=== PATIENT | male | born 1955 | race Caucasian/White ===

== ENCOUNTER 2022-04-09 13:13 | Inpatient (IN) | payer MEDICARE ==
[2022-04-09] VITALS (10 sets, daily range): BP systolic 94–143; BP diastolic 56–76
[~2022-04-09] VITALS: Ht 172.7 cm; Wt 102.5 kg
[2022-04-09] MEDS ORDERED: HEPARIN SODIUM 25000 UNITS/D5W 250 ML IV ONE (13:40)
[2022-04-09] MEDS ORDERED: NITROGLYCERIN 50 MG/D5% WATER 0 ML ONE (13:40)
[2022-04-09] MEDS ORDERED: NITROGLYCERIN 50 MG/D5% WATER 250 ML IV PRN ×2 (13:45→17:51)
[2022-04-09 13:57] LABS: BASOPHILS % (AUTO) 0.5 % (0.0-2.0); EOSINOPHILS % (AUTO) 0.6 % (1.0-6.0); HEMATOCRIT 24.9 % (41-53); HEMOGLOBIN 8.5 g/dL (13.5-17.5); LYMPHOCYTES # (AUTO) 0.9 K/uL (1.0-4.8); LYMPHOCYTES % (AUTO) 12.3 % (22.0-44.0); MEAN CORPUSCULAR HEMOGLOBIN 30.7 pg (26.0-34.0); MEAN CORPUSCULAR HGB CONC 34.2 G/dL (31.0-37.0); MEAN CORPUSCULAR VOLUME 90 fL (80-100); MONOCYTES # (AUTO) 0.6 K/uL (0.1-1.0); MONOCYTES % (AUTO) 8.9 % (2.0-9.0); NEUTROPHILS # (AUTO) 5.5 K/uL (1.8-7.7); NEUTROPHILS % (AUTO) 77.7 % (40.0-70.0); PLATELET COUNT (AUTO) 180 K/uL (150-450); RED BLOOD CELL COUNT(AUTO) 2.77 MIL/uL (4.50-5.90)
[2022-04-09] MEDS ORDERED: HEPARIN SODIUM,PORCINE 5,000 UNITS/ML VIAL IVP PRN ×2 (14:00)
[2022-04-09] MEDS ORDERED: HEPARIN SODIUM 25000 UNITS/D5W 250 ML IV PRN (14:00)
[2022-04-09] MEDS ORDERED: FentaNYL CITRATE PF 100 MCG/2 ML VIAL ONE (14:00)
[2022-04-09] MEDS ORDERED: NITROGLYCERIN 50 MG/D5% WATER 250 ML ONE (14:01)
[2022-04-09] MEDS ORDERED: VERAPAMIL HCL 2.5 MG/ML 2 ML VIAL ONE (14:01)
[2022-04-09] MEDS ORDERED: MIDAZOLAM HCL 2 MG/2 ML VIAL ONE (14:01)
[2022-04-09] MEDS ORDERED: IOHEXOL 300 MG/ML 50 ML VIAL ONE (14:01)
[2022-04-09] MEDS ORDERED: IOHEXOL 300 MG/ML 100 ML VIAL ONE (14:02)
[2022-04-09] MEDS ORDERED: HEPARIN SODIUM,PORCINE 1,000 UNITS/ML 10 ML VIAL ONE (14:02)
[2022-04-09] MEDS ORDERED: HEPARIN SODIUM 1000 UNITS/NS 1,000 ML ONE (14:02)
[2022-04-09] MEDS ORDERED: SODIUM BICARBONATE 50 MEQ/50 ML VIAL ONE (14:02)
[2022-04-09] MEDS ORDERED: LIDOCAINE/PF 1% 30 ML VIAL ONE (14:02)
[2022-04-09] MEDS ORDERED: IOHEXOL 300 MG/ML 150 ML VIAL ONE ×2 (14:02→15:37)
[2022-04-09 14:06] LABS: CALCIUM, TOTAL 8.9 mg/dL (8.8-10.5); CREATININE 9.12 mg/dL (0.60-1.30); POTASSIUM 4.3 mmol/L (3.5-5.1)
[2022-04-09 14:12] LABS: ALBUMIN 3.6 g/dL (3.4-5.0); BILIRUBIN,TOTAL 0.6 mg/dL (0.1-1.0)
[2022-04-09 14:27] LABS: PROTHROMBIN TIME 10.3 SEC (9.4-11.6)
[2022-04-09] MEDS ORDERED: LIDOCAINE 1% 30 ML/SOD BICARB 8.4% 4 ML SQ ONE (14:30)
[2022-04-09] MEDS ORDERED: SODIUM CHLORIDE 0.9% 500 ML IV ONE (14:30)
[2022-04-09] MEDS ORDERED: IOHEXOL 300 MG/ML 150 ML VIAL ICOR ONE (14:30)
[2022-04-09] MEDS ORDERED: HEPARIN SODIUM 1000 UNITS/NS 1,000 ML IARTER ONE (14:30)
[2022-04-09] MEDS ORDERED: MIDAZOLAM HCL 2 MG/2 ML VIAL IVP ONE ×2 (14:45→16:15)
[2022-04-09] MEDS ORDERED: FentaNYL CITRATE PF 100 MCG/2 ML VIAL IVP ONE ×3 (14:45→17:00)
[2022-04-09] MEDS ORDERED: IOHEXOL 300 MG/ML 50 ML VIAL IARTER ONE (15:00)
[2022-04-09] MEDS ORDERED: HEPARIN SODIUM,PORCINE 5,000 UNITS/ML VIAL IVP ONE ×4 (15:15→16:15)
[2022-04-09] MEDS ORDERED: MAGNESIUM HYDROXIDE SUSPENSION 30 ML UDCUP PO PRN (15:30)
[2022-04-09] MEDS ORDERED: BISACODYL 10 MG RECTAL RECTAL SUPPOSITORY PR PRN (15:30)
[2022-04-09] MEDS ORDERED: HYDROCODONE/ACETAMINOPHEN 5-325 MG TABLET PO PRN (15:30)
[2022-04-09] MEDS ORDERED: ZOLPIDEM TARTRATE 5 MG TABLET PO PRN (15:30)
[2022-04-09] MEDS ORDERED: MORPHINE SULFATE 2 MG/ML SYRINGE IVP PRN (15:30)
[2022-04-09] MEDS ORDERED: ACETAMINOPHEN 325 MG TABLET PO PRN (15:30)
[2022-04-09] MEDS ORDERED: ONDANSETRON HCL 4 MG/2 ML VIAL IVP PRN (15:30)
[2022-04-09] MEDS ORDERED: HEPARIN SODIUM 1000 UNITS/NS 500 ML ONE (15:49)
[2022-04-09] MEDS ORDERED: CLOPIDOGREL BISULFATE 300 MG TABLET ONE (15:54)
[2022-04-09] MEDS ORDERED: CLOPIDOGREL BISULFATE 300 MG TABLET PO ONE (16:30)
[2022-04-09] MEDS ORDERED: IOHEXOL 300 MG/ML 100 ML VIAL IARTER ONE (16:30)
[2022-04-09 19:16] LABS: GLUCOSE,POINT OF CARE 111 MG/DL (70-110)
[2022-04-09] MEDS: CARVEDILOL 3.125 MG TABLET PO SCH (20:48)
[2022-04-09] MEDS: DOCUSATE SODIUM 100 MG CAPSULE PO SCH (20:48)
[2022-04-09] MEDS: LISINOPRIL 5 MG TABLET PO SCH (21:46)
[2022-04-10] VITALS (20 sets, daily range): BP systolic 101–157; BP diastolic 41–76
[2022-04-10 05:12] LABS: BASOPHILS % (AUTO) 0.6 % (0.0-2.0); EOSINOPHILS % (AUTO) 1.1 % (1.0-6.0); HEMATOCRIT 22.2 % (41-53); HEMOGLOBIN 7.6 g/dL (13.5-17.5); LYMPHOCYTES # (AUTO) 1.1 K/uL (1.0-4.8); LYMPHOCYTES % (AUTO) 18.5 % (22.0-44.0); MEAN CORPUSCULAR HEMOGLOBIN 30.8 pg (26.0-34.0); MEAN CORPUSCULAR HGB CONC 34.3 G/dL (31.0-37.0); MEAN CORPUSCULAR VOLUME 90 fL (80-100); MONOCYTES # (AUTO) 0.6 K/uL (0.1-1.0); MONOCYTES % (AUTO) 10.6 % (2.0-9.0); NEUTROPHILS # (AUTO) 4.1 K/uL (1.8-7.7); NEUTROPHILS % (AUTO) 69.2 % (40.0-70.0); PLATELET COUNT (AUTO) 166 K/uL (150-450); RED BLOOD CELL COUNT(AUTO) 2.48 MIL/uL (4.50-5.90); RED CELL DISTRIBUTION WIDTH 14.3 % (11.5-14.5)
[2022-04-10 05:43] LABS: BILIRUBIN,TOTAL 0.5 mg/dL (0.1-1.0); CREATININE 11.14 mg/dL (0.60-1.30); THYROID STIMULATING HORMONE 1.25 uIU/mL (0.36-3.74)
[2022-04-10 06:17] LABS: POTASSIUM 6.1 mmol/L (3.5-5.1)
[2022-04-10] MEDS: ASPIRIN 81 MG CHEWABLE TABLET PO SCH (07:34)
[2022-04-10] MEDS: ATORVASTATIN CALCIUM 40 MG TABLET PO SCH (07:34)
[2022-04-10] MEDS: CARVEDILOL 3.125 MG TABLET PO SCH (07:34)
[2022-04-10] MEDS: DOCUSATE SODIUM 100 MG CAPSULE PO SCH ×2 (07:34→20:24)
[2022-04-10] MEDS: PANTOPRAZOLE SODIUM 40 MG DR TABLET PO SCH (07:35)
[2022-04-10] MEDS: CLOPIDOGREL BISULFATE 75 MG TABLET PO SCH (07:35)
[2022-04-10] MEDS ORDERED: EPOETIN ALFA 10,000 UNITS/ML VIAL SQ SCH (09:00)
[2022-04-10] MEDS: LISINOPRIL 5 MG TABLET PO SCH ×2 (10:10→20:24)
[2022-04-10 11:31] LABS: GLUCOSE,POINT OF CARE 113 MG/DL (70-110)
[2022-04-10 18:11] LABS: GLUCOSE,POINT OF CARE 96 MG/DL (70-110)
[2022-04-10 18:26] LABS: GLUCOSE,POINT OF CARE 108 MG/DL (70-110)
[2022-04-10 18:27] LABS: GLUCOSE,POINT OF CARE 110 MG/DL (70-110)
[2022-04-10] MEDS: CARVEDILOL 6.25 MG TABLET PO SCH (20:24)
[2022-04-10 21:15] LABS: GLUCOSE,POINT OF CARE 117 MG/DL (70-110)
[2022-04-10] MEDS ORDERED: SODIUM CHLORIDE 0.9% 250 ML IV ONE (22:09)
[2022-04-11] VITALS (8 sets, daily range): BP systolic 102–141; BP diastolic 51–68
[2022-04-11 05:23] LABS: BASOPHILS % (AUTO) 0.7 % (0.0-2.0); EOSINOPHILS % (AUTO) 1.6 % (1.0-6.0); HEMATOCRIT 24.1 % (41-53); HEMOGLOBIN 8.3 g/dL (13.5-17.5); LYMPHOCYTES % (AUTO) 15.3 % (22.0-44.0); MEAN CORPUSCULAR HEMOGLOBIN 30.9 pg (26.0-34.0); MEAN CORPUSCULAR HGB CONC 34.5 G/dL (31.0-37.0); MEAN CORPUSCULAR VOLUME 90 fL (80-100); MONOCYTES # (AUTO) 0.6 K/uL (0.1-1.0); MONOCYTES % (AUTO) 8.8 % (2.0-9.0); NEUTROPHILS % (AUTO) 73.6 % (40.0-70.0); PLATELET COUNT (AUTO) 176 K/uL (150-450); RED BLOOD CELL COUNT(AUTO) 2.69 MIL/uL (4.50-5.90); RED CELL DISTRIBUTION WIDTH 14.1 % (11.5-14.5)
[2022-04-11 05:32] LABS: CALCIUM, TOTAL 8.4 mg/dL (8.8-10.5); CREATININE 7.74 mg/dL (0.60-1.30); POTASSIUM 4.7 mmol/L (3.5-5.1)
[2022-04-11 05:37] LABS: CHOL/HDL RATIO 3.3 (4.2-7.3)
[2022-04-11] MEDS: ASPIRIN 81 MG CHEWABLE TABLET PO SCH (08:00)
[2022-04-11] MEDS: DOCUSATE SODIUM 100 MG CAPSULE PO SCH (09:16)
[2022-04-11] MEDS: PANTOPRAZOLE SODIUM 40 MG DR TABLET PO SCH (09:17)
[2022-04-11] MEDS: CARVEDILOL 6.25 MG TABLET PO SCH (09:17)
[2022-04-11] MEDS: LISINOPRIL 5 MG TABLET PO SCH (09:17)
[2022-04-11] MEDS: ATORVASTATIN CALCIUM 40 MG TABLET PO SCH (09:17)
[2022-04-11] MEDS: CLOPIDOGREL BISULFATE 75 MG TABLET PO SCH (09:17)
[2022-04-11] MEDS ORDERED: LISI-892 PO (11:05)
[2022-04-11] MEDS ORDERED: CARV12 PO (11:05)
[2022-04-11] MEDS ORDERED: CLOP75TA60 PO (11:05)
[2022-04-11] MEDS ORDERED: ATOR40TA71 PO (11:05)
[2022-04-11] MEDS ORDERED: ASPI81 PO (11:05)
[2022-04-11 12:01] LABS: GLUCOMETER DEV NAME(LOC) 5S.2B; GLUCOSE,POINT OF CARE 123 MG/DL (70-110)
[2022-04-11 15:11] LABS: GLUCOMETER DEV NAME(LOC) 5S.2B; GLUCOSE,POINT OF CARE 120 MG/DL (70-110)
[2022-04-11 20:16] LABS: GLUCOSE,POINT OF CARE 93 MG/DL (70-110)
[2022-04-11] MEDS ORDERED: CARVEDILOL 12.5 MG TABLET PO SCH (21:00)
== END 2022-04-11 15:55 | disposition home or self-care (01) | DRG 215 ==
LOC: EMS 13:14 → 5S 14:13 → ICU 17:30 → 5N 04-11 07:27
PROVIDERS: ADMIT Internal Medicine; ATTEND Internal Medicine
PROC: 02HA3RZ Insertion of Short-term External Heart Assist System into Heart, Percutaneous Approach (ICD-10-PCS; principal; 2022-04-09)
PROC: 5A0221D Assistance with Cardiac Output using Impeller Pump, Continuous (ICD-10-PCS; 2022-04-09)
PROC: 027236Z Dilation of Coronary Artery, Three Arteries with Three Drug-eluting Intraluminal Devices, Percutaneous Approach (ICD-10-PCS; 2022-04-09)
PROC: 4A023N7 Measurement of Cardiac Sampling and Pressure, Left Heart, Percutaneous Approach (ICD-10-PCS; 2022-04-09)
PROC: B211YZZ Fluoroscopy of Multiple Coronary Arteries using Other Contrast (ICD-10-PCS; 2022-04-09)
PROC: B215YZZ Fluoroscopy of Left Heart using Other Contrast (ICD-10-PCS; 2022-04-09)
PROC: B241ZZ3 Ultrasonography of Multiple Coronary Arteries, Intravascular (ICD-10-PCS; 2022-04-09)
PROC: B41FYZZ Fluoroscopy of Right Lower Extremity Arteries using Other Contrast (ICD-10-PCS; 2022-04-09)
PROC: 30233N1 Transfusion of Nonautologous Red Blood Cells into Peripheral Vein, Percutaneous Approach (ICD-10-PCS; 2022-04-10)
PROC: 5A1D70Z Performance of Urinary Filtration, Intermittent, Less than 6 Hours Per Day (ICD-10-PCS; 2022-04-10)
DX: I21.4 Non-ST elevation (NSTEMI) myocardial infarction (principal); N18.6 End stage renal disease; I12.0 Hypertensive chronic kidney disease with stage 5 chronic kidney disease or end stage renal disease; D63.1 Anemia in chronic kidney disease; D72.829 Elevated white blood cell count, unspecified; E11.22 Type 2 diabetes mellitus with diabetic chronic kidney disease; E66.01 Morbid (severe) obesity due to excess calories; E78.5 Hyperlipidemia, unspecified; E87.5 Hyperkalemia; I25.10 Atherosclerotic heart disease of native coronary artery without angina pectoris; Z79.02 Long term (current) use of antithrombotics/antiplatelets; Z87.891 Personal history of nicotine dependence; Z99.2 Dependence on renal dialysis; Z68.34 Body mass index [BMI] 34.0-34.9, adult
CPT/HCPCS: 33990; 37236; 75960; 80048; 80053; 80061; 82962; 83036; 83690; 83880; 84443; 84484; 85025; 85610; 85730; 86850; 86900; 86901; 86923; 87081; 87340; 90935; 92920; 92921; 92928; 93005; 93306; 99291; G0378; J0885; J1644; J2250; J3010; J3490; J7050; P9016; Q9967; 36415-L1; 36415-TC; Z7610